=== PATIENT | male | born 1990 | race Hispanic/Latino ===

== ENCOUNTER 2016-06-28 09:59 | Emergency (ER) | payer OTHER ==
[~2016-06-28] VITALS: Ht 157.5 cm; Wt 73.9 kg
[2016-06-28] MEDS ORDERED: TETANUS, DIPTHERIA, PERTUSSIS (ADACELL) VACCINE 0.5 ML VIAL IM ONE (10:20)
[2016-06-28 11:05] VITALS: BP 142/92
== END 2016-06-28 10:40 | disposition home or self-care (01) ==
LOC: EDUNIT# 09:59 → ED 10:00
DX: S61.511A Laceration without foreign body of right wrist, initial encounter (principal); W26.0XXA Contact with knife, initial encounter; Y93.89 Activity, other specified; Y92.89 Other specified places as the place of occurrence of the external cause; Y99.0 Civilian activity done for income or pay
CPT/HCPCS: 12001; 90471; 90715; 99282; 99283